=== PATIENT | male | born 1955 | race African-American/Black ===

== ENCOUNTER → 2018-04-25 | Outpatient (CLI) | payer OTHER ==
[~2018-04-25] VITALS: Ht 172.7 cm; Wt 82.6 kg
[~2018-04-25] MED LIST: FLEXERIL PO; MOBIC15 MG PO; NEURONTIN 300300 M1 PO; ZANTAC 150MG T150 MG PO
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
[2018-04-25 13:27] VITALS: BP 150/87
== END ==
LOC: PAIN 09:51
DX: M54.12 Radiculopathy, cervical region (principal); M79.601 Pain in right arm

== ENCOUNTER → 2018-05-21 | Outpatient (CLI) | payer OTHER ==
[~2018-05-21] VITALS: Ht 172.7 cm; Wt 85.0 kg
--- NOTE | ~2018-05-21 | HPC ---
[facility] [address] [place] [address] PAIN MANAGEMENT CONSULTATION Name: ARAM MARTINEZ JR Room #: REG KIRSTY WolfeWilla#: [id number] Admission: 05/21/18 Attend Phys: Bryan Hidalgo MD Discharge: Date of : 53 Report #: [id number] THIS REPORT FOR: //name// CC: Dr. Maki [facility] physician/PCP Bryan Hidalgo DATE OF SERVICE: 05/21/2018 Dictated by: ____ CHIEF COMPLAINT: Cervical pain with radiation down his right arm here for medical management followup. HISTORY OF PRESENT ILLNESS: This is a 62-year-old black gentleman, who is referred to the pain clinic for his cervical pain. He was seen by Dr. Hidalgo about a month ago. At that time, he was given medications to try to relieve his cervical pain and arm pain in lieu of epidural steroid injections. The patient returns today stating that he did not take the Meloxicam, it did not fit well with his stomach, but has been taking the gabapentin 300 mg 1 tablet up to 3 times a day. He states at times he does have a little dizziness or feels lethargic, but his pain has been significantly reduced and today he rates it at 1/10. He states he has no arm pain, occasional neck pain that he has also been using ice to help relieve this. The patient states that it has not been bothersome during the day and really only thinks about his pain when he is sitting still or resting. ALLERGIES: No known drug allergies. MEDICATIONS: Gabapentin 300 mg 1 tablet 3 times a day. PQRS: 1. Denies history of osteoarthritis or rheumatoid arthritis. 2. Height 5 feet 8 inches. Weight 187, BMI is 28.5. 3. Vital signs: Blood pressure 141/91, pulse 63, respirations 14, oxygen is 100%. 4. Pain score is 1 5. Fall risk. Denies dizziness at this time, has had some previously, does not need help walking or standing and has not fallen in the last 3 months. 6. The patient denies blood thinners. 7. No history of hypertension. 8. No opioid therapy. 9. Risk assessment tool as moderate. 10. Functional assessment is . 11. Denies recreational drug use. Has never smoked and does not use alcohol. [address] [address] PAIN MANAGEMENT CONSULTATION Name: MICHELLEARAM GALLARDOWELL Room #: REG [facility] Rafal#: [id number] Admission: 05/21/18 Attend Phys: Bryan Hidalgo MD Discharge: Date of : 53 Report #: [id number] PHYSICAL EXAMINATION: GENERAL: This patient is a well-developed, well-nourished black male, who appears his stated age. He is alert and oriented. Affect is appropriate. Speech is fluent. HEENT: Normocephalic, atraumatic. Extraocular eye muscles intact. Mucous membranes are moist. NECK: Good range of motion. No JVD or adenopathy. MUSCULOSKELETAL: Upper extremity strength is judged to be 5/5 in major muscle groups. The patient is able to lift his hand over his head and in all directions. The patient denies numbness and tingling in his arm or hand. IMPRESSION: Cervical radiculopathy. PLAN: We discussed treatment options again for this patient. He states that his pain has much improved and was thankful not need a steroid injection at this time. He wishes to continue his gabapentin 3 times a day for the next month. Next refill, the patient will decrease to 2 times a day of his gabapentin for 2 weeks, then decrease it to 1 tablet a day for 2 weeks and then off. If the patient's pain does return, he will go back slowly to the level that was helpful to reduce his pain again. The patient was given a script for gabapentin 300 mg 1 tablet 3 times a day with 2 additional refills of #90. The patient will return to our clinic as needed to followup for medication management. By: [id number] Bryan Hidalgo MD /ADRI
[2018-05-21 13:16] VITALS: BP 141/91
== END ==
LOC: PAIN 07:06
DX: M54.2 Cervicalgia (principal); M79.601 Pain in right arm; M79.641 Pain in right hand; Z79.899 Other long term (current) drug therapy